=== PATIENT | female | born 1970 | race Two or more races ===

== ENCOUNTER 2024-09-16 08:43 | Emergency (ER) | payer MEDICAID, SELFPAY ==
[2024-09-16 09:09] VITALS: BP 144/82; PULSE 77; RESP 18; TEMP 36.8; O2SAT 98; BMI 28.2
--- NOTE | 2024-09-16 09:17 | XR_ITS ---
Examination: Lumbar spine 3 views Technique one AP lateral coned lateral lower lumbar spine 3 views Exam date and time: 2023 1049 hours INDICATIONS: Lower back pain beginning one week ago. FINDINGS: Adequate alignment lumbar vertebral bodies No lumbar fracture Mild disc narrowing L5-S1 No spondylolisthesis IMPRESSION: Mild disc narrowing L5-S1
--- NOTE | 2024-09-16 09:42 | EDNOTE_ITS ---
Lower Extremity Injury RME/HPI General Chief Complaint: Hip Injury/Pain Stated Complaint: LEFT HIP PAIN X 1 WK; IBUPROFEN LAST NIGHT Time Seen by Provider: 09/16/24 08:51 Source: patient Arrival date/time: 09/16/24 08:43 This is a 54-year-old female presented to the emergency department complaints of lumbar mid paraspinal pain for the last 1 week. Has had intermittent pain in the past. Also feels pressure in the suprapubic area. Denies any fever, chills rigors or CVA tenderness. Reports has been taking [id number] ibuprofen with mild relief of symptoms. Related Data Home Medications ?Medication ?Instructions ?Recorded ?Confirmed atorvastatin 40 mg tablet 40 mg PO QDAY 02/15/21 02/15/21 sertraline 50 mg tablet 50 mg PO QDAY 02/15/21 02/15/21 Previous Rx's ?Medication ?Instructions ?Recorded cyclobenzaprine 10 mg tablet 10 mg PO TID PRN muscle spasm #30 02/08/21 tabs ondansetron HCl 4 mg tablet 4 mg PO Q6H #20 tabs 02/15/21 (Zofran) meclizine 25 mg tablet 25 mg PO TID PRN dizziness #30 tabs 09/21/21 gabapentin 100 mg capsule 100 mg PO TID PRN back pain #20 09/16/24 caps ibuprofen 800 mg tablet (IBU) 800 mg PO Q8H #20 tabs 09/16/24 nitrofurantoin 100 mg PO Q12H 5 days #10 caps 09/16/24 monohydrate/macrocrystals 100 mg capsule (Macrobid) Allergies Allergy/AdvReac Type Severity Reaction Status Date / Time No Known Allergies Allergy Verified 09/16/24 08:47 Review of Systems Review of Systems Systems Reviewed: All systems reviewed, normal except as documented Narrative Review of Systems: Gen: No fever, no chills, no weight loss EYES: No discharge, no visual changes, no pain HEENT: No ear pain, no congestion, no sore throat PULM: No shortness of breath, no cough, no congestion CV: No chest pain, no dyspnea on exertion, no palpitations GI: No nausea, no vomiting, no diarrhea, no pain, no constipation : No frequency, no urgency,? +mild dysuria Musc/skel: No joint pain, + lumbar back pain Skin: No rash? Psyc: No hallucinations, no depression Heme/Lymph: No easy bleeding or bruising tendencies Neuro: No weakness, no headache ED Exam Narrative Physical exam: General: In moderate discomfort but not in any acute distress Head normocephalic HEENT: Within acceptable limits Neck is supple nontender Chest equal chest rise, mild anterior center tenderness to palpation Respiratory: Clear to auscultation no wheezes crackles or rubs CV: Rate rhythm is regular no murmurs rubs or clicks Abdomen is distended secondary to body habitus soft nontender no masses positive bowel sounds all 4 quadrants Back: No CVA tenderness no spinous process tenderness from cervical spine thoracic and lumbar spine Skin: Intact no petechiae rash induration ulceration or crepitus Extremities: Moving all extremity against resistance cap refill less than 2 seconds neurosensory intact, no lower extremity edema Neuro: Awake alert oriented x3 Glascow coma 15 no focal deficits Course Quality Measures none Orders Category Date Time Status XR lumbar spine 2-3V Stat Exams 09/16/24 09:17 Completed HCG Qualitative,Urine Stat Lab 09/16/24 12:19 Completed Urinalysis Stat Lab 09/16/24 12:19 Completed Ketorolac Inj [Toradol Inj] Med 09/16/24 12:38 Discontinued 60 mg IM X1 ONE Vital Signs Vital signs: Vital Signs Temperature 98.3 F 09/16/24 09:09 Pulse Rate 77 09/16/24 09:09 Respiratory Rate 18 09/16/24 09:09 Blood Pressure 144/82 H 09/16/24 09:09 Pulse Oximetry (%) 98 09/16/24 09:09 Oxygen Delivery Method Room Air 09/16/24 09:09 Extremity Injury, Lower MDM Narrative MDM Narrative:: This is a 54-year-old female presented to the emergency department complaints of lumbar mid paraspinal pain for the last 1 week. Also feels pressure in the suprapubic area mild dysuria.. Denies any fever, chills rigors or CVA tenderness. Reports has been taking [id number] ibuprofen with mild relief of symptoms. Patient's x-ray does demonstrate mild degenerative disc disease and mild leukocytosis noted on urine. DX-lumbar spine mild disc narrowing disc, UTI. Will treat outpatient antibiotics and pain medication. Close follow-up with her PCP. Patient data External records reviewed:: [facility] previous records Clinical information provided by:: patient Social determinants that could affect healthcare access:: none Patient has the following chronic illnesses:: no How is presenting disease/condition affected by chronic disease/condition?: no chronic disease Evaluation data The following diagnostics were reviewed and interpreted by me:: radiology exam(s) Lab and/or radiology exams considered but not ordered:: no Interpretation Summary: Examination: Lumbar spine 3 views Technique one AP lateral coned lateral lower lumbar spine 3 views Exam date and time: 2023 1049 hours INDICATIONS: Lower back pain beginning one week ago. FINDINGS: Adequate alignment lumbar vertebral bodies No lumbar fracture Mild disc narrowing L5-S1 No spondylolisthesis IMPRESSION: Mild disc narrowing L5-S1 Medications / Prescriptions Medications or Prescriptions considered but not ordered:: yes Medication administrations:: Medication Administration History Discontinued Medications Ketorolac Tromethamine (Ketorolac Inj 60 Mg/2 Ml Vial) 60 mg IM X1 ONE Stop: 09/16/24 12:39 All medications administered and effective Consultations Consultation(s) initiated? (list below): No Diagnosis Extremity Injury, Lower Differential Diagnosis: ankle sprain and strain and other (Lumbar disc disease, back pain, UTI, pyelonephritis,) Most likely diagnosis given after review of the tests above:: Degenerative disc c disease Admission Indicated Admission indicated?: not indicated Admission Request Was there a request for admission?: No Disposition Plan Disposition Plan: Discharge Discharge Attestation Discharge Attestation: The patient and all family members were given an opportunity to ask questions and understood the discharge instructions. Discharge instructions specifically effects, indications for sooner follow up or return to the emergency department, and the expected course of current diagnosis. Patient condition: Stable Discharge Plan Plan Patient Disposition: HOME (Self Care) Prescriptions/Referrals Prescriptions/Med Rec: New gabapentin 100 mg capsule 100 mg PO TID PRN (Reason: back pain) Qty: 20 0RF ibuprofen [IBU] 800 mg tablet 800 mg PO Q8H Qty: 20 0RF nitrofurantoin monohyd/m-cryst [Macrobid] 100 mg capsule 100 mg PO Q12H 5 Days Qty: 10 0RF Rx Instructions: must administer with a meal/food No Action atorvastatin 40 mg Tablet 40 mg PO QDAY sertraline 50 mg Tablet 50 mg PO QDAY ondansetron HCl [Zofran] 4 mg tablet 4 mg PO Q6H Qty: 20 0RF meclizine 25 mg tablet 25 mg PO TID PRN (Reason: dizziness) Qty: 30 0RF cyclobenzaprine 10 mg tablet 10 mg PO TID PRN (Reason: muscle spasm) Qty: 30 0RF Referrals: Xochitl Johnson PA-C [Primary Care Provider] - In 1 week Problem List Clinical Impression: Lumbar back pain, Degenerative disc disease at L5-S1 level, UTI (urinary tract infection) Patient/Caregiver Discharge Instructions Discharge Activity: activity as tolerated Education Materials: ED Degenerative Disk Disease, ED CYSTITIS Female Adult Additional Instructions: Se aconseja al paciente tratamiento no farmacol?gico con calor superficial, masajes, acupuntura o manipulaci?n patel. Si se desea un tratamiento farmacol?gico, asher buena opci?n son los f?rmacos antiinflamatorios no esteroides (MAKEDA) o los relajantes del m?sculo esquel?amira. Inform? al paciente que la fisioterapia a menudo se incorpora marcos un componente de la terapia conservadora. Se recomienda iniciar medicamentos de: Ibuprofeno gabapentina Contin?e con garcia esteroide seg?n las indicaciones de garcia m?dico. Regrese al departamento de emergencias si cualquier empeoramiento de los s?ntomas cambia en garcia condici?n. Advised patient of nonpharmacologic treatment with superficial heat, massage, acupuncture, or spinal manipulation If pharmacologic treatment is desired, good choice is nonsteroidal anti- inflammatory drugs (NSAIDs) or skeletal muscle relaxants. Advised patient that Physical therapy is often incorporated as a component of conservative therapy Advised to start medications of: Ibuprofen Gabapentin Continue your steroid as directed by your doctor Return to the emergency department this any worsening symptoms change in condition. Print Language: Citizen Of [place] Stand Alone Forms: Ivana Award Info., Patient Portal Info Letter PA/ABBIE Supervising Physician THANH/ABBIE Supervising Physician: Dr Wagoner
[2024-09-16 12:25] LABS: Collection Type, Urine Clean Catch
[2024-09-16 12:37] LABS: Bacteria,Urine Rare; Bilirubin,Urine Negative (Negative); Blood,Urine Negative (Negative); Clarity,Urine Clear (Clear/Hazy); Color,Urine Yellow (Lt Yel-Yel); Glucose, Urine Negative (Negative); Ketones,Urine Negative (Negative); Leukocyte Esterase,Urine Positive (Negative); Nitrite,Urine Positive (Negative); Protein,Urine Negative (Neg - Trace); RBC,Urine 1 /hpf (0-3); Squamous Epithelial Cell,Urine < 1 /hpf (0-5); Urobilinogen,Urine Negative mg/dL (0.0-1.0); WBC,Urine 10 /hpf (0-5)
[2024-09-16 12:55] LABS: HCG Qualitative,Urine Negative
[2024-09-16] MEDS: KETOROLAC INJ 60 MG/2 ML VIAL IM (14:09)
== END 2024-09-16 16:38 | disposition home or self-care (01) ==
PROVIDERS: Nurse Practitioner Primary Care; Emergency Provider Emergency Medicine; PCP Physician Assistant
DX: M51.370 Other intervertebral disc degeneration, lumbosacral region with discogenic back pain only (principal); M48.07 Spinal stenosis, lumbosacral region; N39.0 Urinary tract infection, site not specified
CPT/HCPCS: 72100; 81001; 81025; 96372; 99283; J1885

== ENCOUNTER 2024-09-28 08:59 | Emergency (ER) | payer MEDICAID, SELFPAY ==
[2024-09-28 09:08] VITALS: BP 125/81; PULSE 70; RESP 16; TEMP 37.1; O2SAT 98; BMI 31.1
--- NOTE | 2024-09-28 09:17 | EDNOTE_ITS ---
Lower Extremity Injury RME/HPI General Chief Complaint: Hip Injury/Pain Stated Complaint: RIGHT HIP PAIN Time Seen by Provider: 09/28/24 09:01 Arrival date/time: 09/28/24 08:59 54-year-old female presents the emergency department complains of left lower back pain radiating down her left leg patient reports symptoms all over last couple of weeks patient reports has been seen here as well as her primary care doctor patient reports take muscle relaxers and pain medication which does give her relief but the patient's symptoms reemerge after taking medication. Patient reports no fever no nausea no vomiting Limitations: no limitations Related Data Home Medications ?Medication ?Instructions ?Recorded ?Confirmed atorvastatin 40 mg tablet 40 mg PO QDAY 02/15/21 02/15/21 sertraline 50 mg tablet 50 mg PO QDAY 02/15/21 02/15/21 Previous Rx's ?Medication ?Instructions ?Recorded cyclobenzaprine 10 mg tablet 10 mg PO TID PRN muscle spasm #30 02/08/21 tabs ondansetron HCl 4 mg tablet 4 mg PO Q6H #20 tabs 02/15/21 (Zofran) meclizine 25 mg tablet 25 mg PO TID PRN dizziness #30 tabs 09/21/21 gabapentin 100 mg capsule 100 mg PO TID PRN back pain #20 09/16/24 caps ibuprofen 800 mg tablet (IBU) 800 mg PO Q8H #20 tabs 09/16/24 hydrocodone 5 mg-acetaminophen 325 1 tab PO BID PRN pain #10 tabs 09/28/24 mg tablet Allergies Allergy/AdvReac Type Severity Reaction Status Date / Time No Known Allergies Allergy Verified 09/28/24 09:00 Review of Systems Review of Systems Systems Reviewed: All systems reviewed, normal except as documented Constitutional Constitutional: Reports system reviewed and no additional complaints, except as documented, Denies fatigue, Denies fever(s) and Denies headache(s) Eyes Eyes: Reports system reviewed and no additional complaints, except as documented ENT Ears, Nose, Mouth, and Throat: Reports system reviewed and no additional complaints, except as documented, Denies dizziness and Denies headache(s) Cardiovascular Cardiovascular: Reports system reviewed and no additional complaints, except as documented, Denies chest pain, Denies dyspnea and Denies dyspnea on exertion Respiratory Respiratory: Reports system reviewed and no additional complaints, except as documented, Denies chest congestion, Denies cough, Denies dyspnea and Denies dyspnea on exertion Gastrointestinal Gastrointestinal: Reports system reviewed and no additional complaints, except as documented, Denies abdominal pain, Denies nausea and Denies vomiting Genitourinary Genitourinary: Reports system reviewed and no additional complaints, except as documented, Denies flank pain, Denies hematuria and Denies pelvic pain Musculoskeletal Musculoskeletal: Reports system reviewed and no additional complaints, except as documented, Reports abnormal gait, Reports back pain, Denies numbness, Denies stiffness and Denies tingling Integumentary/Breasts Skin/Breast: Reports system reviewed and no additional complaints, except as documented, Denies rash and Denies wounds Neurologic Neurologic: Reports system reviewed and no additional complaints, except as documented, Reports abnormal gait, Denies dizziness, Denies headache(s), Denies numbness and Denies tingling Psychiatric Psychiatric: Reports system reviewed and no additional complaints, except as documented and Denies anxiety Endocrine Endocrine: Denies fatigue Past Medical History Past Medical History NEUROLOGIC: Negative Neurological Disorders CARDIAC: Negative Cardiac Disorders ED Exam General Limitations: Present no limitations General appearance: Present alert and in no apparent distress Head Head exam: Present atraumatic Eye Eye exam: Present normal appearance, PERRL and EOMI ENT ENT exam: Present normal exam, normal oropharynx and mucous membranes moist Neck Neck exam: Present normal inspection, full ROM and trachea midline Chest Chest inspection: Present normal inspection and symmetric chest wall rise Respiratory Respiratory exam: Present normal lung sounds bilaterally Cardiovascular Cardiovascular exam: Present regular rate, normal rhythm and normal heart sounds Abdominal Exam Abdominal exam: Present soft and normal bowel sounds Extremities Exam Extremities exam: Present normal inspection and full ROM Back Exam Back exam: Present normal inspection, full ROM, paraspinal tenderness, sciatic notch tenderness (L) and straight leg raise (L); Absent CVA tenderness (R) or CVA tenderness (L) Neurological Exam Neurological exam: Present alert, oriented X3 and CN II-XII intact Psychiatric Psychiatric exam: Present normal affect and normal mood Skin Skin exam: Present warm, dry, intact and normal color Course Quality Measures none Orders Category Date Time Status Dexamethasone Inj [Decadron Inj] Med 09/28/24 09:15 Discontinued 10 mg PO X1 ONE Ketorolac Inj [Toradol Inj] Med 09/28/24 09:15 Discontinued 30 mg IM X1 ONE Vital Signs Vital signs: Vital Signs Temperature 98.7 F 09/28/24 09:08 Pulse Rate 70 09/28/24 09:08 Respiratory Rate 16 09/28/24 09:08 Blood Pressure 125/81 09/28/24 09:08 Pulse Oximetry (%) 98 09/28/24 09:08 Oxygen Delivery Method Room Air 09/28/24 09:08 O2 saturation 98% room air within normal limits Extremity Injury, Lower MDM Narrative MDM Narrative:: 54-year-old female presents the emergency department complains of left lower back pain radiating down her left leg patient reports symptoms all over last couple of weeks patient reports has been seen here as well as her primary care doctor patient reports take muscle relaxers and pain medication which does give her relief but the patient's symptoms reemerge after taking medication. Patient reports no fever no nausea no vomiting On exam patient well-appearing patient does not appear ill or toxic patient walks with steady gait patient reports no saddle anesthesia no loss of bowel or bladder Patient given Toradol as well as dexamethasone here Patient discharged with [place] and pain medication Chart [place] Patient data External records reviewed:: [facility] previous records Clinical information provided by:: patient Social determinants that could affect healthcare access:: none Patient has the following chronic illnesses:: See history How is presenting disease/condition affected by chronic disease/condition?: exacerbated by Evaluation data The following diagnostics were reviewed and interpreted by me:: other (specify) (N/A) Lab and/or radiology exams considered but not ordered:: Consider not indicated Interpretation Summary: N/A Medications / Prescriptions Medications or Prescriptions considered but not ordered:: Given Medication administrations:: Medication Administration History Discontinued Medications Dexamethasone Sodium Phosphate (Dexamethasone Sod Phos Inj 10 Mg/Ml Vial) 10 mg PO X1 ONE Stop: 09/28/24 09:16 Last Admin: 09/28/24 09:26 Dose: 10 mg Documented By: ED Ketorolac Tromethamine (Ketorolac Inj 30 Mg/Ml Vial) 30 mg IM X1 ONE Stop: 09/28/24 09:16 Last Admin: 09/28/24 09:28 Dose: 30 mg Documented By: ED Given Consultations Consultation(s) initiated? (list below): No Diagnosis Extremity Injury, Lower Differential Diagnosis: other (Hip pain, hip strain, sciatica) Most likely diagnosis given after review of the tests above:: Sciatica Admission Indicated Admission indicated?: not indicated Admission Request Was there a request for admission?: No Disposition Plan Disposition Plan: Discharge Discharge Attestation Discharge Attestation: The patient and all family members were given an opportunity to ask questions and understood the discharge instructions. Discharge instructions specifically effects, indications for sooner follow up or return to the emergency department, and the expected course of current diagnosis. Patient condition: Stable Discharge Plan Plan Patient Disposition: HOME (Self Care) Disposition Comment: Stable Prescriptions/Referrals Prescriptions/Med Rec: New hydrocodone-acetaminophen 5-325 mg tablet 1 tab PO BID MDD 10 PRN (Reason: pain) Qty: 10 0RF No Action atorvastatin 40 mg Tablet 40 mg PO QDAY sertraline 50 mg Tablet 50 mg PO QDAY ondansetron HCl [Zofran] 4 mg tablet 4 mg PO Q6H Qty: 20 0RF meclizine 25 mg tablet 25 mg PO TID PRN (Reason: dizziness) Qty: 30 0RF cyclobenzaprine 10 mg tablet 10 mg PO TID PRN (Reason: muscle spasm) Qty: 30 0RF gabapentin 100 mg capsule 100 mg PO TID PRN (Reason: back pain) Qty: 20 0RF ibuprofen [IBU] 800 mg tablet 800 mg PO Q8H Qty: 20 0RF Problem List Clinical Impression: Left lumbar radiculopathy Patient/Caregiver Discharge Instructions Education Materials: Back Safety: Sitting Additional Instructions: Please follow up with your primary care doctor in the next 24-48hrs for any worsening symptoms return here immediately Print Language: Croatian Stand Alone Forms: Ivana Award Info., Patient Portal Info Letter THANH/ABBIE Supervising Physician THANH/ABBIE Supervising Physician: Dr Braswell
[2024-09-28] MEDS: DEXAMETHASONE SOD PHOS INJ 10 MG/ML VIAL PO (09:26)
[2024-09-28] MEDS: KETOROLAC INJ 30 MG/ML VIAL IM (09:28)
== END 2024-09-28 09:32 | disposition home or self-care (01) ==
LOC: SERX 09:38
PROVIDERS: Emergency Provider Emergency Medicine; PCP Nurse Practitioner Family
DX: M54.16 Radiculopathy, lumbar region (principal)
CPT/HCPCS: 96372; 99283; J1100; J1885

== ENCOUNTER 2025-02-15 10:46 | Outpatient (AMB) | payer MEDICAID, SELFPAY ==
[2025-02-15 11:59] VITALS: BP 129/84; PULSE 59; RESP 18; TEMP 36.2; O2SAT 99; BMI 31.8
--- NOTE | 2025-02-15 11:59 | GYNCLNT_ITS ---
Vital Signs 02/15/25 11:59 Height 1.6 m Height Method Stated Weight 81.42 kg Weight Measurement Method Standing Scale BMI 31.8 BP 129/84 Blood Pressure Source Automatic Cuff Blood Pressure Location Left Upper Arm Position Sitting Respiration 18 Pulse 59 L Pulse Source Monitor Temp 97.2 F Temp Source Oral Pulse Oximetry (%) 99 Oxygen Delivery Method Room Air Allergies/Home Meds Allergies & Medications Allergies No Known Allergies Allergy (Verified 02/15/25 12:00) Medication Reconciliation cyclobenzaprine 10 mg tablet 10 mg PO TID PRN muscle spasm #30 tabs 02/08/21 [Rx Confirmed 02/15/25] atorvastatin 40 mg tablet 40 mg PO QDAY 02/15/21 [History Confirmed 02/15/25] ondansetron HCl 4 mg tablet (Zofran) 4 mg PO Q6H #20 tabs 02/15/21 [Rx Confirmed 02/15/25] sertraline 50 mg tablet 50 mg PO QDAY 02/15/21 [History Confirmed 02/15/25] meclizine 25 mg tablet 25 mg PO TID PRN dizziness #30 tabs 09/21/21 [Rx Confirmed 02/15/25] gabapentin 100 mg capsule 100 mg PO TID PRN back pain #20 caps 09/16/24 [Rx Confirmed 02/15/25] ibuprofen 800 mg tablet (IBU) 800 mg PO Q8H #20 tabs 09/16/24 [Rx Confirmed 02/15/25] hydrocodone 5 mg-acetaminophen 325 mg tablet 1 tab PO BID PRN pain #10 tabs 09/28/24 [Rx Confirmed 02/15/25] Intake Visit Data Collection New Patient or Established: Established Patient (seen at [facility] within 3 years) Reason for Visit:: Annual wellness exam Seen by Clinical Staff ONLY (RN/MA): No Deck Mechanic Required: Yes Deck Mechanic's name/title: [employer] Do You Feel Safe at Home: Yes Authorities Contacted: N/A PCP or OBGYN visit in last 3 months: Yes Hx Now: No Are you currently on any form of Control: No Pain Present Currently: No Smoking Status Smoking Status: Never smoker Summer Internship history Summer Internship History Menstrual regularity: regular Monthly: No Age at menarche: 12 Menopausal: Yes If menopausal, at what age did it occur: 52 Currently sexually active: No If not currently sexually active, have you ever been sexually active: Yes Questionnaires Covid-19 Vaccine Questionnaire Has patient been vacinated for Covid-19 Have you been vacinated for Covid-19: Yes PHQ-9 PHQ-2 Over the last 2 weeks, how often have you been bothered by any of the following problems? 1. Little interest or pleasure in doing things: not at all 2. Feeling down, depressed, or hopeless: not at all Total score: 0 PHQ-9 3. Trouble falling or staying asleep, or sleeping too much: Not at all 4. Feeling tired or having little energy: Not at all 5. Poor appetite or overeating: Not at all 6. Feeling bad about yourself - or that you are a failure or have let yourself or your family down: Not at all 7. Trouble concentrating on things, such as reading the newspaper or watching television: Not at all 8. Moving or speaking so slowly that other people could have noticed? - Or the opposite - being so fidgety or restless that you have been moving around a lot more than usual: not at all 9. Thoughts that you would be better off or of hurting yourself in some way: Not at all Total score: 0 If you checked off any problems, how difficult have these problems made it for you to do your work, take care of things at home, or get along with other people?: not difficult at all Source: Developed by Drs. Nahun Esparza, Imani Vanegas, Wolfgang Beltre and colleagues, with an educational fabian from [employer]. Depression screen completed yes Social History Living Situation History Marital Status: Lives With: Family Housing: House Housing Other:: Has 6 children Tobacco History Smoking Status: Never smoker Second Hand Smoke Exposure: No Alcohol History Alcohol Intake: Never Domestic Abuse History Do You Feel Safe at Home: Yes Past Medical History Past Medical History Have you ever been diagnosed with any of the following: Cardiology Problems Hypercholesterolemia: Yes Hypertension: Yes Respiratory Problems Asthma: Yes Genital/Urinary Problems Renal Disease: No Reproductive Problems Breast Cancer: No (No personal history of breast cancer, has 2 maternal aunts with breast CA) Endometriosis: No Fibroids: No Genital Herpes: No Gonorrhea: No Pelvic Inflammatory Disease: No Polycystic Ovarian Syndrome: No Previous Pregnancies: Yes ( x 6) Syphilis: No Uterine Prolapse: No Endocrine Problems Diabetes Mellitus Type 2: No Blood Problems Anemia: No Psychologic Problems Depression: Yes Other Problems Hospitalization: Yes (For childbirth x 6) Surgical History Additional Surgical History: Patient is 6 C-sections, history of gallstones unclear whether she has had her gallbladder removed. History of Present Illness HPI Narrative The patient is a 55-year-old -0-0-6 status post x 6 in the past. She is Armenian-speaking only and her entire history and physical is performed with translation assistance with a medical lab assistant, Samuel. She did not fill out any new paperwork as we only have it in [place]. From looking at her records, she has been in the ER a few times over the years for headaches, sciatic pain, neck pain, and gallstones. I do not see any surgical report where she has had her gallbladder removed. Today she has no gynecological complaints she just wants a Pap smear. Specifically no hot flashes, no postmenopausal bleeding , and no urinary complaints. Upon discussing her history, she has 2 aunts in their 50s who have from breast cancer. She has not been screened for BRCA1 BRCA2. She also needs a colon screen. She went through menopause about 4 years ago. She has not been on any hormone replacement therapy. Review of Systems Review of Systems Narrative Review of Systems: No hot flashes, no night sweats, menopausal 4 to 5 years. No HRT. No postmenopausal bleeding. No urinary complaints. Exam General Limitations: language barrier (Armenian-speaking only. pilot control operator medical lab assistant Samuel in room) General Appearance: alert, in no apparent distress, comfortable, cooperative, healthy appearing and well groomed Neck Neck exam: Present normal inspection, full ROM and trachea midline Chest Chest inspection: Present normal inspection and symmetric chest wall rise Exp Chest Breast: bilateral: other (Normal breast exam bilaterally) Resp Respiratory exam: Present normal lung sounds bilaterally Card Cardiovascular exam: Present regular rate, normal rhythm and normal heart sounds Abdominal Abdominal exam: Present soft, normal bowel sounds and scar (Well-healed C- section scar) External exam: Present normal external exam (Some decreased estrogen present) Speculum exam: Present normal speculum exam (Some decreased estrogen present) Bimanual exam: Present normal bimanual exam (Uterus is anteverted and mobile no significant pelvic organ prolapse) Psych Psychiatric exam: Present normal affect and normal mood Skin Skin exam: Present warm, dry, intact and normal color Assessment & Plan Diagnosis / Problem List (1) Women's annual routine gynecological examination: Status: Acute Assessment and Plan: Pap with high risk HPV performed breast exam done and encouraged. Mammogram was ordered. (2) Family history of breast cancer: Status: Acute Assessment and Plan: BRCA1 BRCA2 screening was ordered. (3) Screening for colon cancer: Status: Acute Assessment and Plan: Colonoscopy ordered. Additional Plan Follow Up: 1 Year Office Procedures OB Clinic LOC & Office Proc's Nursing/Assessment Patient Status: Established Patient OB Clinic Nursing Assessment: BP Monitoring, Medication Reconciliation, Update PMH in EMR and Vital Signs OB Clinic Coordination of Care: Consent,records obtained, informed consent, Education Simp Pt/Fam, Lab and Imaging orders and Staff clarify orders Miscellaneous Interventions: Pelvic/Pap Smear Set up Established Patient Charge Established Patient Point Assignment: 110 Established Patient Point Charge: EP Level 3 (80-115) In Clinic Procedures Pap Smear: Yes [employer] ED TEACHER: Papsmear Pap Smear Procedure [place] in room during procedure?: Yes Pre-op diagnosis general: Annual wellness exam Post-op diagnosis procedure note: Same Procedure Notes:: Pap with cotesting to HPV performed Papsmear completed: yes
== END 2025-02-15 13:02 | disposition home or self-care (01) ==
LOC: HODSOBC 10:46
PROVIDERS: PCP Nurse Practitioner Family; Referring Provider Nurse Practitioner Family; Supervising Provider Obstetrics & Gynecology; Visit Provider Obstetrics & Gynecology
DX: Z01.419 Encounter for gynecological examination (general) (routine) without abnormal findings (principal); Z11.51 Encounter for screening for human papillomavirus (HPV); Z12.11 Encounter for screening for malignant neoplasm of colon; Z80.3 Family history of malignant neoplasm of breast; E78.00 Pure hypercholesterolemia, unspecified; I10 Essential (primary) hypertension; Z79.899 Other long term (current) drug therapy
CPT/HCPCS: 99213; Q0091; G0463

== ENCOUNTER 2025-04-19 21:42 | Emergency (ER) | payer MEDICAID, SELFPAY ==
[2025-04-19 21:43] VITALS: BMI 30.8
--- NOTE | 2025-04-19 21:52 | EKG_ITS ---
[facility] Test Date: 2025-04-19 Pat Name: DEREK CHRISTIANSON Department: Room: - Gender: Female Kindergarten Tutor: : 1970 Requested By: ED Temporary Provider Order Number: [id number] Reading MD: ED Temporary Provider Measurements Intervals [place] Rate: 67 P: 57 SC: 180 QRS: 15 QRSD: 158 T: 46 QT: 400 QTc: 424 Interpretive Statements SINUS RHYTHM RIGHT BUNDLE BRANCH BLOCK [120+ ms QRS DURATION, UPRIGHT V1, 40+ ms S IN I/aVL/V4/V5/V6] Compared to ECG 02/21/2024 22:37:59 No significant changes /store/S0/[id number].pdf
[2025-04-19 22:25] VITALS: BP 152/79; PULSE 61; RESP 18; TEMP 36.9; O2SAT 97
--- NOTE | 2025-04-19 22:39 | EDRME_ITS ---
Rapid Medical Screening Exam RME Arrival date/time: 04/19/25 21:42 Chief Complaint: Chest Pain Vital signs: Vital Signs Temperature 98.4 F 04/19/25 22:25 Pulse Rate 61 04/19/25 22:25 Respiratory Rate 18 04/19/25 22:25 Blood Pressure 152/79 H 04/19/25 22:25 Pulse Oximetry (%) 97 04/19/25 22:25 Oxygen Delivery Method Room Air 04/19/25 22:25 Pulse ox room air is 97% Vital signs reviewed by provider: Yes [facility] Narrative: 55-year-old female presents to urgent care with complaint of intermittent chest tightness and today constant pain to her chest. Denies difficulty breathing. Daughter mentions a fever however the patient denies any symptoms of an upper or lower respiratory infection.
--- NOTE | 2025-04-19 22:41 | XR_ITS ---
Examination: PA lateral chest 2 views TECHNIQUE: Upright PA lateral chest 2 views Date and time: April 19, 2025 at 10:48 PM INDICATION: Chest pain today. FINDINGS: Normal heart size. Lungs are clear. Osseous structures are intact. IMPRESSION: No active disease.
[2025-04-19 23:06] LABS: Basophils # (Auto) 0.1 Thou/mm3 (0.0-0.2); Basophils % (Auto) 1 % (0-2.5); Eosinophils # (Auto) 0.1 Thou/mm3 (0.0-0.5); Eosinophils % (Auto) 1 % (0-10); Hematocrit 38.9 % (36.0-46.0); Hemoglobin 14.1 g/dL (12.0-16.0); Immature Granulocytes % (Auto) 0 % (0-0); Immature Granulocytes Auto 0.01 Thou/mm3 (0.00-0.00); Lymphocytes # (Auto) 2.9 Thou/mm3 (1.0-4.8); Lymphocytes % (Auto) 44 % (10-50); Mean Corpuscular HGB Conc 36.2 g/dl (31.0-37.0); Mean Corpuscular Hemoglobin 30.9 pg (25.0-35.0); Mean Corpuscular Volume 85 fL (80-100); Monocytes # (Auto) 0.7 Thou/mm3 (0.0-0.8); Monocytes % (Auto) 11 % (0-12); Neutrophils # (Auto) 2.7 Thou/mm3 (1.8-7.7); Neutrophils % (Auto) 43 % (37-80); Nucleated Red Blood Cell % 0 /100 WBC (0); Platelet Count 243 Thou/mm3 (140-440); RDW Standard Deviation 38.6 fL (36.4-46.3); Red Blood Count 4.57 Miln/mm3 (4.00-5.20); White Blood Count 6.4 Thou/mm3 (3.6-11.0)
[2025-04-19 23:20] LABS: B-Type Natriuretic Peptide < 20 pg/mL (0-100)
[2025-04-19 23:21] LABS: Alanine Aminotransferase 17 U/L (10-49); Albumin, Serum 4.4 gm/dL (3.5-5.0); Albumin/Globulin Ratio 1.8 (1.2-2.2); Alkaline Phosphatase 88 U/L (46-116); Anion Gap 7 (7-16); Aspartate Amino Transferase 23 U/L (0-34); BUN/Creatinine Ratio 17 Ratio (12-20); Bilirubin,Total 0.7 mg/dL (0.3-1.2); Blood Urea Nitrogen 12 mg/dL (9-23); Calcium 9.6 mg/dL (8.3-10.6); Calcium (Corrected) 9.6 mg/dL (8.5-10.1); Carbon Dioxide 27.1 mMol/L (20.0-31.0); Chloride 106 mMol/L (98-107); Creatinine (Component) 0.7 mg/dL (0.6-1.3); Estimated Creatinine Clearance 90.3 mL/min (>60); Globulin 2.4 gm/dL (2.3-3.5); Glucose 102 mg/dL (74-106); LDH (Lactate Dehydrogenase) 198 U/L (120-246); Magnesium 2.2 mg/dL (1.6-2.6); Osmolality,Calculated 279 (275-295); Potassium 3.5 mMol/L (3.4-5.1); Sodium 140 mMol/L (136-145); Total Protein 6.8 gm/dL (5.7-8.2); Troponin I < 0.002 ng/mL (0.0-0.045); eGFR > 60 See Note
[2025-04-19 23:22] LABS: Collection Type, Urine Clean Catch
[2025-04-19 23:27] LABS: Bilirubin,Urine Negative (Negative); Blood,Urine Negative (Negative); Clarity,Urine Clear (Clear/Hazy); Color,Urine Colorless (Lt Yel-Yel); Glucose, Urine Negative (Negative); Ketones,Urine Negative (Negative); Leukocyte Esterase,Urine Positive (Negative); Nitrite,Urine Negative (Negative); Protein,Urine Negative (Neg - Trace); RBC,Urine 1 /hpf (0-3); Squamous Epithelial Cell,Urine < 1 /hpf (0-5); Urobilinogen,Urine Negative mg/dL (0.0-1.0); WBC,Urine 9 /hpf (0-5)
[2025-04-19 23:27] LABS: Partial Thromboplastin Time 25.1 Seconds (22.0-36.0); Prothrombin Time 10.8 Seconds (9.0-12.2)
[2025-04-20 01:33] VITALS: BP 133/87; PULSE 60; RESP 16; TEMP 36.9; O2SAT 98
--- NOTE | 2025-04-20 03:06 | PD.EDCHEST ---
ED Chest Pain RME/HPI General Chief Complaint: Chest Pain Stated Complaint: CHEST TIGHTNESS AND FATUIGE Arrival date/time: 04/19/25 21:42 RME / HPI RME / HPI narrative: 55-year-old female presents to urgent care with complaint of intermittent chest tightness and today constant pain to her chest. Denies difficulty breathing. Daughter mentions a fever however the patient denies any symptoms of an upper or lower respiratory infection. DR PONCE MAIN ED EVALUATION: 55 y/o female with Hx of Hypercholesterolemia, Hypertension, Asthma, and Depression presents to ED c/o sudden intermittent chest pain with shortness of breath, BLE numbness, and dizziness x 3 days. Pain is worse today. She describes the pain more relative to pressure and tightening. She reports a temperature of 100.4F earlier today. Denies aggravation of pain when applying pressure to the chest or with deep inspiration. Patient sees Dr. Neumann in [place] for cardiology and takes Carvedilol for blood pressure management, but admits to not seeing her undertaker assistant in 6 months. Patient denies cough or any other associated symptoms or aggravating factors. No modifying factors, no radiation, no migration. No pain reported overall. N other concerns or complaints expressed at this time. Related Data Home Medications ?Medication ?Instructions ?Recorded ?Confirmed atorvastatin 40 mg tablet 40 mg PO QDAY 02/15/21 02/15/25 sertraline 50 mg tablet 50 mg PO QDAY 02/15/21 02/15/25 Previous Rx's ?Medication ?Instructions ?Recorded cyclobenzaprine 10 mg tablet 10 mg PO TID PRN muscle spasm #30 02/08/21 tabs ondansetron HCl 4 mg tablet 4 mg PO Q6H #20 tabs 02/15/21 (Zofran) meclizine 25 mg tablet 25 mg PO TID PRN dizziness #30 tabs 09/21/21 gabapentin 100 mg capsule 100 mg PO TID PRN back pain #20 09/16/24 caps ibuprofen 800 mg tablet (IBU) 800 mg PO Q8H #20 tabs 09/16/24 hydrocodone 5 mg-acetaminophen 325 1 tab PO BID PRN pain #10 tabs 09/28/24 mg tablet Allergies Allergy/AdvReac Type Severity Reaction Status Date / Time No Known Allergies Allergy Verified 04/19/25 21:50 Review of Systems Review of Systems Systems Reviewed: All systems reviewed, normal except as documented Past Medical History Past Medical History CARDIAC: Positive Hypercholesterolemia and Hypertension RESPIRATORY: Positive Asthma REPRODUCTIVE: Positive Previous Pregnancies ( x 6) PSYCHO/SOCIAL: Positive Depression OTHER HISTORY: Positive Hospitalization (For childbirth x 6) Surgical History SURGICAL: Positive Section ED Exam Narrative Physical exam: GENERAL APPEARANCE: alert and oriented x 4, well-developed, well-nourished, no acute distress VITALS: All vitals were reviewed and the pulse ox is 98% on room air, which is normal according to my interpretation. HEENT: Normocephalic, atraumatic; pupils equal, round, reactive to light; EOMI; mucous membranes pink, moist; oropharynx clear NECK: Supple LUNGS: CTABL; no wheezes, no rales, no rhonchi HEART: Regular rate, regular rhythm; normal S1, S2; no murmurs ABDOMEN: non distended; normal BS; soft, no tenderness, no guarding, no rebound; no masses, no organomegaly, no hernia BACK: no CVA tenderness EXTREMITIES: atraumatic; no edema NEUROLOGIC: awake; alert and oriented x4; cranial nerves II-XII grossly intact; no focal sensory or motor deficits PSYCHIATRIC: appropriate mood and affect SKIN: warm, dry, normal color; no rashes Course Course Course Narrative: CXR is ordered for determining the etiology of shortness of breath. Quality Measures none Orders Category Date Time Status Bedside Influenza A&B Antigen Test NOW Care 04/20/25 03:17 Active EKG (ED ONLY) *Do not use* NOW Care 04/19/25 21:52 Completed EKG (ED Only) Stat Exams 04/19/25 21:52 Draft XR chest 2V Stat Exams 04/19/25 22:41 Completed B-Type Natriuretic Peptide Stat Lab 04/19/25 22:56 Completed CBC Stat Lab 04/19/25 22:56 Completed COVID-19 Antigen (In-House) Stat Lab 04/20/25 03:47 Received Comprehensive Metabolic Panel Stat Lab 04/19/25 22:56 Completed D-Dimer Stat Lab 04/20/25 03:23 Received LDH (Lactate Dehydrogenase) Stat Lab 04/19/25 22:56 Completed Magnesium Stat Lab 04/19/25 22:56 Completed Partial Thromboplastin Time Stat Lab 04/19/25 22:56 Completed Prothrombin Time with INR Stat Lab 04/19/25 22:56 Completed Troponin I Stat Lab 04/19/25 22:56 Completed Troponin I Stat Lab 04/20/25 03:23 Completed Urinalysis Stat Lab 04/19/25 23:19 Completed Vital Signs Vital signs: Vital Signs Temperature 98.4 F 04/19/25 22:25 Pulse Rate 61 04/19/25 22:25 Respiratory Rate 18 04/19/25 22:25 Blood Pressure 152/79 H 04/19/25 22:25 Pulse Oximetry (%) 97 04/19/25 22:25 Oxygen Delivery Method Room Air 04/19/25 22:25 Chest Pain MDM Narrative MDM Narrative:: Scribe Attestation: IMaria Teresa, am scribing for and in the presence of Dr. Ponce. Provider Notation: Although this document has been carefully reviewed, there may still be some phonetic and other typographical errors.? These errors are purely grammatical due to imperfections in the software program and should not be construed in any way to? compromise the substance of the patient's medical care during this visit. Patient data External records reviewed:: [facility] previous records (Reviewed prior ED records from 09/28/24. Patient was seen for Left lumbar radiculopathy.) Clinical information provided by:: patient Social determinants that could affect healthcare access:: none Patient has the following chronic illnesses:: Hypercholesterolemia, Hypertension, Asthma, and Depression How is presenting disease/condition affected by chronic disease/condition?: exacerbated by Evaluation data The following diagnostics were reviewed and interpreted by me:: lab results, radiology exam(s) and EKG tracing(s) (EKG manual reading, my interpretation: sinusrhythm, Right BBB, unchanged from 1 year ago, no acute ischemic changes.) Lab and/or radiology exams considered but not ordered:: None Interpretation Summary: RADIOLOGY Chest X-Ray: Patient: DEREK CHRISTIANSON. Record#: [id number] Birthdate: 1970 Age/Sex: 55 / F Location: [facility] Attending Dr: Ordering Physician: Td Frias PA-C Date of Service: 04/19/25 Procedure(s): XR chest 2V Accession Number(s): [id number] cc: Gideon Manuel MD; Td Frias PA-C; Amber Jon NP~ Examination: PA lateral chest 2 views TECHNIQUE: Upright PA lateral chest 2 views Date and time: April 19, 2025 at 10:48 PM INDICATION: Chest pain today. FINDINGS: Normal heart size. Lungs are clear. Osseous structures are intact. IMPRESSION: No active disease. Dictated By: Gideon Manuel MD Signed By: <Electronically signed by Gideon Manuel MD in OV> 04/19/25 2316 Medications / Prescriptions Medications or Prescriptions considered but not ordered:: None Medication administrations:: See above if any Consultations Consultation(s) initiated? (list below): No Diagnosis Chest Pain Differential Diagnosis: pneumothorax, stable angina, unstable angina pectoris, atypical chest pain, st elevation myocardial infarction, chest pain and other (PE) Most likely diagnosis given after review of the tests above:: Chest pain Admission Indicated Admission indicated?: not indicated Explain why admission is indicated or not indicated:: Patient does not meet admission criteria. Admission Request Was there a request for admission?: No Disposition Plan Disposition Plan: Discharge Discharge Attestation Discharge Attestation: The patient and all family members were given an opportunity to ask questions and understood the discharge instructions. Discharge instructions specifically effects, indications for sooner follow up or return to the emergency department, and the expected course of current diagnosis. Patient condition: Stable Discharge Plan Plan Patient Disposition: HOME (Self Care) Prescriptions/Referrals Prescriptions/Med Rec: No Action atorvastatin 40 mg Tablet 40 mg PO QDAY sertraline 50 mg Tablet 50 mg PO QDAY ondansetron HCl [Zofran] 4 mg tablet 4 mg PO Q6H Qty: 20 0RF meclizine 25 mg tablet 25 mg PO TID PRN (Reason: dizziness) Qty: 30 0RF cyclobenzaprine 10 mg tablet 10 mg PO TID PRN (Reason: muscle spasm) Qty: 30 0RF gabapentin 100 mg capsule 100 mg PO TID PRN (Reason: back pain) Qty: 20 0RF ibuprofen [IBU] 800 mg tablet 800 mg PO Q8H Qty: 20 0RF hydrocodone-acetaminophen 5-325 mg tablet 1 tab PO BID MDD 10 PRN (Reason: pain) Qty: 10 0RF Referrals: Amber Jon FAMILY REUNIFICATION SPECIALIST [Primary Care Provider] - In 1 week Problem List Clinical Impression: Chest pain Patient/Caregiver Discharge Instructions Education Materials: ED Chest Pain, Uncertain Cause Print Language: Mexican Stand Alone Forms: Ivana Award Info., Patient Portal Info Letter
[2025-04-20 03:52] LABS: Troponin I < 0.020 ng/mL (0.0-0.045)
[2025-04-20 05:06] LABS: COVID-19 Antigen (In-House) Negative (Negative)
[2025-04-20 05:18] LABS: D-Dimer < 250 ng/mL (<600)
== END 2025-04-20 05:56 | disposition home or self-care (01) ==
PROVIDERS: Physician Assistant; Emergency Provider Emergency Medicine; PCP Nurse Practitioner Family
DX: R07.89 Other chest pain (principal); I45.10 Unspecified right bundle-branch block; E78.00 Pure hypercholesterolemia, unspecified; I10 Essential (primary) hypertension
CPT/HCPCS: 36415; 71046; 80053; 81001; 83615; 83735; 83880; 84484; 85025; 85379; 85610; 85730; 87811; 93005; 99283